=== PATIENT | male | born 1935 | race Caucasian/White ===

== ENCOUNTER → 2016-10-02 | Outpatient (CLI) | payer MEDICARE, OTHER ==
[~2016-10-02] MED LIST: ALPR0.5T3 PO; BACL10TA PO; DONE10TA7 PO; ESCI10TA PO; GABA100C4 PO; MULT1TAB46 PO; PRIM50TA5 PO; SITA50TA PO; TRIA37.5 PO
--- NOTE | 2016-10-02 14:11 | RADRPT ---
EXAM DATE/TIME: 10/02/2016 13:06 [facility] COMPARISON: MRI THORACIC SPINE W & W/O CONTRAST, December 10, 2014, 17:02. INDICATIONS : Inability to ambulate. MEDICAL HISTORY : Diabetes mellitus type 2. Hypertension. SURGICAL HISTORY : Fusion, cervical. Inguinal hernia repair. ENCOUNTER: Initial ACUITY: 4-6 days PAIN SCORE: 0/10 LOCATION: T-spine TECHNIQUE: Multiplanar multisequence MRI of the thoracic spine was performed. FINDINGS: VERTEBRA: Normal vertebral body height. Homogeneous marrow signal except for stable mixed-signal in T12 consis tent with old fracture. ALIGNMENT: Normal. CORD: Normal position and configuration. T1-T2: Normal. T2-T3: The thecal sac has a normal diameter. No evidence of disc bulge or protrusion. T3-T4: The thecal sac has a normal diameter. No evidence of disc bulge or protrusion. T4-T5: The thecal sac has a normal diameter. No evidence of disc bulge or protrusion. T5-T6: The thecal sac has a normal diameter. No evidence of disc bulge or protrusion. T6-T7: The thecal sac has a normal diameter. No evidence of disc bulge or protrusion. T7-T8: The thecal sac has a normal diameter. No evidence of disc bulge or protrusion. T8-T9: The thecal sac has a normal diameter. No evidence of disc bulge or protrusion. T9-T10: The thecal sac has a normal diameter. No evidence of disc bulge or protrusion. T10-T11: The thecal sac has a normal diameter. No evidence of disc bulge or protrusion. T11-T12: The thecal sac has a normal diameter. No evidence of disc bulge or protrusion. T12-L1: The thecal sac has a normal diameter. No evidence of disc bulge or protrusion. CONCLUSION: Normal examination except for stable signal at T12. No compression fracture seen. Delon Solano MD on October 02, 2016 at 14:09 Board Certified Radiologist. This report was verified electronically.
--- NOTE | 2016-10-02 14:42 | RADRPT ---
EXAM DATE/TIME: 10/02/2016 13:06 [facility] COMPARISON: MRI LUMBAR SPINE W & W/O CONTRAST, December 10, 2014, 17:02. INDICATIONS : Inability to ambulate. MEDICAL HISTORY : Diabetes mellitus type 2. Hypertension. SURGICAL HISTORY : Inguinal hernia repair. Fusion, cervical. ENCOUNTER: Initial ACUITY: 4-6 days PAIN SCORE: 0/10 LOCATION: l-spine TECHNIQUE: Multiplanar multisequence MRI of the lumbar spine was performed without contrast. FINDINGS: The most caudal appearing lumbar vertebra is numbered as L5. VERTEBRAE: Homogeneous signal except for hemangioma in L2. Normal alignment. CONUS: Normal level and configuration. T12-L1: The thecal sac has a normal diameter. No evidence of disc bulge or protrusion. The neural foramina are patent bilaterally. L1-L2: The thecal sac has a normal diameter. Mild diffuse annular bulge left greater than right. No evidenc e of disc protrusion. The neural foramina are patent bilaterally. L2-L3: The thecal sac has a normal diameter. Broad-based lateral diffuse annular bulge. No evidence of disc protrusion. The neural foramina are patent bilaterally. L3-L4: The thecal sac has a normal diameter. Mild diffuse annular bulge. No evidence of disc protrusion. Th e neural foramina are patent bilaterally. L4-L5: The thecal sac has a normal diameter. Broad-based diffuse annular bulge with some flattening of the t hecal sac and narrowing of both of the neural foramen. Moderate facet hypertrophy causing bilateral n eural foraminal narrowing No evidence of disc protrusion. L5-S1: The thecal sac has a normal diameter. No evidence of disc bulge or protrusion. The neural foramina are patent bilaterally. CONCLUSION: Broad-based bulges at multiple levels. Mild canal stenosis at L4-5 level. Delon Solano MD on October 02, 2016 at 14:39 Board Certified Radiologist. This report was verified electronically.
--- NOTE | 2016-10-02 15:33 | RADRPT ---
EXAM DATE/TIME: 10/02/2016 13:06 [facility] COMPARISON: MRI CERVICAL SPINE W/O CONTRAST, March 30, 2015, 14:01. INDICATIONS : Inability to ambulate. MEDICAL HISTORY : Diabetes mellitus type 2. Hypertension. SURGICAL HISTORY : Inguinal hernia repair. Fusion, cervical. ENCOUNTER: Initial ACUITY: 4-6 days PAIN SCORE: 0/10 LOCATION: C-spine TECHNIQUE: Multiplanar, multisequence MRI examination of the cervical spine was performed. FINDINGS: VERTEBRAE: There is an anterior fusion plate with anchoring screws involving C5-T1. Intervening bone graft devic e is noted. This generates some obscuration of the marrow signal at these levels. The remaining cervi jeovany spine shows normal marrow signal. ALIGNMENT: No evidence of subluxation. CORD: There is mild heterogeneous high signal involving the cord at C5-C6. This is stable. POST FOSSA: The cerebellar tonsils are normal in position. C2-C3: The thecal sac has a normal configuration. There is no evidence of disc herniation or spinal canal s tenosis. The neural foramina are patent bilaterally. C3-C4: There is a mild central bulge. No abutment of the cord, central canal stenosis, or narrowing of the l ateral recesses. Neural foramina are patent. Appearance is stable. C4-C5: A paracentral disc bulge to the right of midline approaches the ventral portion of the cord without a butting it. Anterior to posterior dimension of the thecal space is 8 mm. There is narrowing of the ri ght lateral recess. Left lateral recess is patent. Bony uncovertebral hypertrophy generates bilateral neural foraminal narrowing. Appearance is stable. C5-C6: This level is fused. The central canal is patent. Bony uncovertebral hypertrophy generates mild neura l foraminal narrowing bilaterally. Appearance is stable. C6-C7: This level is fused. Central canal lateral recesses are patent. Neural foramina are patent. C7-T1: This level is fused. Central canal lateral recesses are patent. Neural foramina are patent. CONCLUSION: 1. Stable exam with prior anterior fusion extending from C5-T1. The central canal is patent throughou t. 2. 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 3. 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 Marco Antonio Green Jr., MD on October 02, 2016 at 15:20 Board Certified Radiologist. This report was verified electronically.
== END ==
LOC: HRAD 12:11
PROVIDERS: ATTEND Neurological Surgery
DX: G95.9 Disease of spinal cord, unspecified (principal); M48.06 Spinal stenosis, lumbar region
CPT/HCPCS: 72141; 72146; 72148